=== PATIENT | female | born 1995 | race Two or more races ===

== ENCOUNTER 2024-10-27 09:20 | Outpatient (AMB) | payer MEDICAID, SELFPAY ==
--- NOTE | 2024-10-27 09:32 | OBCLNT_ITS ---
Vital Signs 10/27/24 09:33 Height 1.65 m Height Method Stated Weight 73.595 kg Weight Measurement Method Standing Scale BMI 27.0 BP 118/75 Blood Pressure Source Automatic Cuff Blood Pressure Location Left Upper Arm Position Sitting Respiration 16 Pulse 69 Pulse Source Monitor Temp 98.2 F Temp Source Oral Pulse Oximetry (%) 98 Oxygen Delivery Method Room Air Allergies/Home Meds Allergies & Medications Allergies No Known Allergies Allergy (Verified 10/27/24 09:33) Medication Reconciliation doxylamine 10 mg-pyridoxine (vit B6) 10 mg tablet,delayed release (Diclegis) 1 tab PO BID 30 days #60 tabs 10/27/24 [Rx] vits no.130-ferrous fum 27 mg iron-folic acid 800 mcg tablet ( Vitamin) 1 tab PO QDAY pregancy #60 tabs 10/27/24 [Rx] Intake Visit Data Collection New Patient or Established: New Patient (never been to [facility]) Reason for Visit:: NEW OBI LMP 07/27/2024 Seen by Clinical Staff ONLY (RN/MA): No Biodiesel Technology Manager Required: No Do You Feel Safe at Home: Yes Authorities Contacted: N/A PCP or OBGYN visit in last 3 months: Yes Hx Now: Yes Are you currently on any form of Control: No Last menstrual period: 07/27/24 Pain Present Currently: No Pain Scale Used: Jones-Doran/Numerical Pain scale:: 0 Smoking Status Smoking Status: Never smoker Questionnaires Covid-19 Vaccine Questionnaire Has patient been vacinated for Covid-19 Have you been vacinated for Covid-19: Yes PHQ-9 PHQ-2 Over the last 2 weeks, how often have you been bothered by any of the following problems? 1. Little interest or pleasure in doing things: not at all 2. Feeling down, depressed, or hopeless: not at all Total score: 0 PHQ-9 3. Trouble falling or staying asleep, or sleeping too much: Not at all 4. Feeling tired or having little energy: Not at all 5. Poor appetite or overeating: Not at all 6. Feeling bad about yourself - or that you are a failure or have let yourself or your family down: Not at all 7. Trouble concentrating on things, such as reading the newspaper or watching television: Not at all 8. Moving or speaking so slowly that other people could have noticed? - Or the opposite - being so fidgety or restless that you have been moving around a lot more than usual: not at all 9. Thoughts that you would be better off or of hurting yourself in some way: Not at all Total score: 0 If you checked off any problems, how difficult have these problems made it for you to do your work, take care of things at home, or get along with other people?: not difficult at all Source: Developed by Drs. Lalo Amado, Philomena Tolentino, Ralph Alvarez and colleagues, with an educational maire from [employer]. Depression screen completed yes Social History Living Situation History Marital Status: Single Lives With: Family Housing: House Tobacco History Smoking Status: Never smoker Second Hand Smoke Exposure: No Alcohol History Alcohol Intake: Never Domestic Abuse History Do You Feel Safe at Home: Yes History of Present Illness HPI Narrative 28-year-old 2 para 1 for OBI. Patient's last. Is July 27, 2024. This gives due date May 02 2025. Patient is happy about the . She denies any signs and symptoms of SAB like vaginal bleeding and cramping. Complains of increased nausea and vomiting would like something for that. She denies any existence of chronic illness. Denies social habits. And denies surgeries. No allergies. OB Initial Visit OB Flowsheet OB Flowsheet Initial Weight: Not Recorded Date -?-?-?-?-?-?-?-?-?-?-?-?- EGA Weight BP Alb Glu CTX Pres Fundal ht FHR Mov Dilation Station Effacement Hx Notes Visit Note 10/27/24 -?-?-?-?-?-?-?-?-?-?-?-?- 13w 1d 73.595 kg 118/75 absent unknown 13 145 absent 29-year-old 2 para 1 for OBI. Patient was tearful because history of an abnormal Pap. She had low-grade with mild dysplasia. And then a colpo was done in August. Colpo showed negative for dysplasia and malignancy. And ECC was benign endocervical glandular cells. No SAB complaints. And patient is 13 weeks 1 day by her last period of July 27, 2024. And this gives due date May 02, 2025 OB panel today with NIPT and carrier screens. Reviewed Pap with patient. Will repeat her Pap . Scheduled ultrasound with maternal- medicine/Dr. Caban. I discussed SAB precautions with patient. Return in 4 weeks OB check. Diclegis for nausea ordered and refilled vitamins Menstrual History Menstrual reliability: definite Flow: normal Menstrual regularity: regular Monthly: Yes Age at menarche: 15 On control pills at conception: No OB History : 2 Para: 1 Hx # Pregnancies: 0 Hx Total # of Abortions (Spontaneous & Elective): 0 # of Living Children: 1 Delivery History 1st : Child's name: NOT PROVIDED date: 02/26/16 sex: male Delivery type: vaginal History of depression before or after : No Infection History & Risk Evaluation History of STDs: none HIV risk evaluation: low risk Hepatitis B risk evaluation: low risk Patient or partner has history of Genital Herpes: No Varicella/chicken pox status: immunized Genetic Screening & History Genetic Screening/Teratology Counseling - Includes patient, baby's father, or anyone in either family with: 1. Patient's age 35 years or older as of estimated date of delivery: No 2. Thalassemia (Syriac, Hungarian, Mediterranean, or Background); MCV less than 80: No 3. Neural Tube Defect (Meningomyelocele, Spina Bifida, or Anencephaly): No 4. Congenital Heart Defect: No 5. Down Syndrome: No 6. Keaton-Sachs (Ashkenazi Mandaeism, Cajun, German [place]): No 7. Ese Disease (Ashkenazi Mandaeism): No 8. Familial Dysautonomia (Ashkenazi Mandaeism): No 9. Sickle Cell Disease or Trait (): No 10. Hemophilia or other blood disorders: No 11. Muscular Dystrophy: No 12. Cystic Fibrosis: No 13. Worthington's Chorea: No 14. Mental Retardation/Autism: No 15. Other inherited genetic or chromosomal disorder: No 16. Maternal Metabolic Disorder (EG,TYPE 1 Diabetes, PKU): No 17. Patient or baby's father had a child with defects not listed above: No 18. Recurrent loss or a stillbirth: No 19. Medications (including supplements, vitamins, herbs or otc drugs)/illicit/recreational drugs/alcohol since last menstrual period: No 20. Any other: No Infection History 1. Live with someone with TB or exposed to TB: No 2. Rash or viral illness since last menstrual period: No 3. Hepatitis B,C: No Other (see comments) Source: [employer] Review of Systems Review of Systems Systems Reviewed: All systems reviewed, normal except as documented Exam General Limitations: no limitations General Appearance: alert, in no apparent distress, comfortable, cooperative, healthy appearing, well developed and well groomed Head Head exam: atraumatic, normocephalic and normal inspection Chest Chest inspection: Present normal inspection and symmetric chest wall rise Resp Respiratory exam: Present normal lung sounds bilaterally Card Cardiovascular exam: Present regular rate, normal rhythm and normal heart sounds Abdominal Abdominal exam: Present soft and normal bowel sounds Psych Psychiatric exam: Present normal affect and normal mood Office Procedures OB Clinic LOC & Office Proc's Nursing/Assessment Patient Status: Initial/New Patient OB Clinic Nursing Assessment: Medication Reconciliation, Update PMH in EMR and Vital Signs OB Clinic Coordination of Care: Education Complex Pt/Fam, Consent,records obtained, informed consent, Lab and Imaging orders, Results/Orders obtained and Staff clarify orders Special Needs: Heart tones and Language special needs New Patient Charge New Patient Point Assignment: [id number] New Patient 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 Discussed SAB precautions. Schedule ultrasound with maternal- medicine Dr. Caban. OB panel, NIPT and carrier screen and A1c return in 4 weeks OB check Additional Plan Follow Up: 4 Weeks (obc)
[2024-10-27 09:33] VITALS: BP 118/75; PULSE 69; RESP 16; TEMP 36.8; O2SAT 98; BMI 27.0
== END 2024-10-27 10:16 | disposition home or self-care (01) ==
LOC: HODSOBC 09:20
PROVIDERS: Supervising Provider Advanced Practice Midwife; Visit Provider Advanced Practice Midwife
DX: O09.91 Supervision of high risk pregnancy, unspecified, first trimester (principal); Z3A.13 13 weeks gestation of pregnancy
CPT/HCPCS: 99203; G0463

== ENCOUNTER 2024-11-26 13:58 | Outpatient (AMB) | payer MEDICAID, SELFPAY ==
[2024-11-26 14:22] VITALS: BP 111/74; PULSE 73; RESP 14; TEMP 36.6; O2SAT 99; BMI 27.3
--- NOTE | 2024-11-26 14:22 | OBCLNT_ITS ---
Vital Signs 11/26/24 14:22 Height 1.65 m Height Method Stated Weight 74.389 kg Weight Measurement Method Standing Scale BMI 27.3 BP 111/74 Blood Pressure Source Automatic Cuff Blood Pressure Location Left Upper Arm Position Sitting Respiration 14 Pulse 73 Pulse Source Monitor Temp 98 F Temp Source Oral Pulse Oximetry (%) 99 Oxygen Delivery Method Room Air Allergies/Home Meds Allergies & Medications Allergies No Known Allergies Allergy (Verified 11/26/24 14:23) Medication Reconciliation doxylamine 10 mg-pyridoxine (vit B6) 10 mg tablet,delayed release (Diclegis) 1 tab PO BID 30 days #60 tabs 10/27/24 [Rx Confirmed 11/26/24] vits no.130-ferrous fum 27 mg iron-folic acid 800 mcg tablet ( Vitamin) 1 tab PO QDAY pregancy #60 tabs 10/27/24 [Rx Confirmed 11/26/24] Intake Visit Data Collection New Patient or Established: Established Patient (seen at [facility] within 3 years) Reason for Visit:: CARE Seen by Clinical Staff ONLY (RN/MA): No Professor Of Historical Theology Required: No Do You Feel Safe at Home: Yes Authorities Contacted: N/A PCP or OBGYN visit in last 3 months: Yes Hx Now: Yes Pain Present Currently: No Pain Scale Used: Jones-Doran/Numerical Pain scale:: 0 Smoking Status Smoking Status: Never smoker Questionnaires Covid-19 Vaccine Questionnaire Has patient been vacinated for Covid-19 Have you been vacinated for Covid-19: Yes PHQ-9 PHQ-2 Over the last 2 weeks, how often have you been bothered by any of the following problems? 1. Little interest or pleasure in doing things: not at all 2. Feeling down, depressed, or hopeless: not at all Total score: 0 PHQ-9 3. Trouble falling or staying asleep, or sleeping too much: Not at all 4. Feeling tired or having little energy: Not at all 5. Poor appetite or overeating: Not at all 6. Feeling bad about yourself - or that you are a failure or have let yourself or your family down: Not at all 7. Trouble concentrating on things, such as reading the newspaper or watching television: Not at all 8. Moving or speaking so slowly that other people could have noticed? - Or the opposite - being so fidgety or restless that you have been moving around a lot more than usual: not at all 9. Thoughts that you would be better off or of hurting yourself in some way: Not at all Total score: 0 Source: Developed by Drs. Lalo Amado, Philomena Tolentino, Ralph Alvarez and colleagues, with an educational marie from [employer]. Depression screen completed yes Social History Living Situation History Lives With: Family Housing: House Tobacco History Smoking Status: Never smoker Second Hand Smoke Exposure: No Alcohol History Alcohol Intake: Never Domestic Abuse History Do You Feel Safe at Home: Yes Care OB Visit Log OB Flowsheet Initial Weight: Not Recorded Date -?-?-?-?-?-?-?-?-?-?-?-?- EGA Weight BP Alb Glu CTX Pres Fundal ht FHR Mov Dilation Station Effacement Hx Notes Visit Note 10/27/24 -?-?-?-?-?-?-?-?-?-?-?-?- 13w 1d 73.595 kg 118/75 absent unknown 13 145 absent 29-year-old 2 para 1 for OBI. Patient was tearful because history of an abnormal Pap. She had low-grade with mild dysplasia. And then a colpo was done in August. Colpo showed negative for dysplasia and malignancy. And ECC was benign endocervical glandular cells. No SAB complaints. And patient is 13 weeks 1 day by her last period of July 27, 2024. And this gives due date May 02, 2025 OB panel today with NIPT and carrier screens. Reviewed Pap with patient. Will repeat her Pap . Scheduled ultrasound with maternal- medicine/Dr. Caban. I discussed SAB precautions with patient. Return in 4 weeks OB check. Diclegis for nausea ordered and refilled vitamins 11/26/24 -?-?-?-?-?-?-?-?-?-?-?-?- 17w 3d 74.389 kg 111/74 absent unknown 17 145 active light fm, denies leaking, bleeding, contractions. No OB discomforts or complaints aFP today. Follow-up on NIPT results and follow-up on MFM appointment patient has not received her appointment yet. SAB precautions return in 4 weeks OB check JEANCARLOS Calculator Estimated Delivery Date Method Current WG Current Estimate 05/03/25 LMP (Certain) 17w 3d Notes Visit Date: 10/27/24 Last Updated by: Padmini Hsieh CNM 28 yo . LMP: 07/27/24. EDC: 05/02/25. PAP: LSIL/mild dysplasia. COLPO: Benign endocervical tissue, Negative for dysplasia, ECC: benign endocervical cell/repap 1 year Office Procedures OBC Clinic LOC & Office Proc's Nursing/Assessment Patient Status: Established Patient OB Clinic Nursing Assessment: Medication Reconciliation, Update PMH in EMR and Vital Signs OB Clinic Coordination of Care: Complex Care and Chronic Disease 1-5, Consent,records obtained, informed consent, Education Simp Pt/Fam, Lab and Imaging orders, Results/Orders obtained and Staff clarify orders Special Needs: Heart tones Established Patient Charge Established Patient Point Assignment: 135 Established Patient Point Charge: EP Level 4 (120-155) Assessment & Plan Diagnosis / Problem List (1) Encounter for supervision of high risk in second trimester, antepartum: Status: Acute Plan aFP today. Follow-up on NIPT results. Follow-up on MFM appointment. MFM is pending. Discussed labor precautions. Continue prenatals and return in 4 weeks OB check Additional Plan Follow Up: 4 Weeks (obc)
== END 2024-11-26 15:04 | disposition home or self-care (01) ==
LOC: HODSOBC 13:58
PROVIDERS: Supervising Provider Advanced Practice Midwife; Visit Provider Advanced Practice Midwife
DX: O09.92 Supervision of high risk pregnancy, unspecified, second trimester (principal); Z3A.17 17 weeks gestation of pregnancy
CPT/HCPCS: 99214; G0463

== ENCOUNTER 2024-12-24 13:57 | Outpatient (AMB) | payer MEDICAID, SELFPAY ==
[2024-12-24 14:08] VITALS: BP 113/72; PULSE 81; RESP 18; TEMP 36.8; O2SAT 98; BMI 27.7
--- NOTE | 2024-12-24 14:08 | OBCLNT_ITS ---
Vital Signs 12/24/24 14:08 Height 1.65 m Height Method Stated Weight 75.523 kg Weight Measurement Method Standing Scale BMI 27.7 BP 113/72 Blood Pressure Source Automatic Cuff Blood Pressure Location Right Upper Arm Position Sitting Respiration 18 Pulse 81 Pulse Source Monitor Temp 98.3 F Temp Source Temporal Artery Scan Pulse Oximetry (%) 98 Oxygen Delivery Method Room Air Allergies/Home Meds Allergies & Medications Allergies No Known Allergies Allergy (Verified 12/24/24 14:09) Medication Reconciliation doxylamine 10 mg-pyridoxine (vit B6) 10 mg tablet,delayed release (Diclegis) 1 tab PO BID 30 days #60 tabs 10/27/24 [Rx Confirmed 12/24/24] vits no.130-ferrous fum 27 mg iron-folic acid 800 mcg tablet ( Vitamin) 1 tab PO QDAY pregancy #60 tabs 10/27/24 [Rx Confirmed 12/24/24] Intake Visit Data Collection New Patient or Established: Established Patient (seen at [facility] within 3 years) Reason for Visit:: OBC Seen by Clinical Staff ONLY (RN/MA): No Itinerant Teacher Assistant Required: No Do You Feel Safe at Home: Yes Authorities Contacted: N/A PCP or OBGYN visit in last 3 months: Yes Date of Last PCP or OBGYN visit: 11/26/24 Hx Now: Yes Are you currently on any form of Control: No Pain Present Currently: No Pain Scale Used: Jones-Doran/Numerical Pain scale:: 0 Smoking Status Smoking Status: Never smoker Immunizations Flu Vaccine in the Last 12 Months: No Flu Vaccine Exclusion Criteria: No Exclusion Criteria Questionnaires Covid-19 Vaccine Questionnaire Has patient been vacinated for Covid-19 Have you been vacinated for Covid-19: No PHQ-9 PHQ-2 Over the last 2 weeks, how often have you been bothered by any of the following problems? 1. Little interest or pleasure in doing things: not at all 2. Feeling down, depressed, or hopeless: not at all Total score: 0 PHQ-9 3. Trouble falling or staying asleep, or sleeping too much: Not at all 4. Feeling tired or having little energy: Not at all 5. Poor appetite or overeating: Not at all 6. Feeling bad about yourself - or that you are a failure or have let yourself or your family down: Not at all 7. Trouble concentrating on things, such as reading the newspaper or watching television: Not at all 8. Moving or speaking so slowly that other people could have noticed? - Or the opposite - being so fidgety or restless that you have been moving around a lot more than usual: not at all 9. Thoughts that you would be better off or of hurting yourself in some wa y: Not at all Total score: 0 If you checked off any problems, how difficult have these problems made it for you to do your work, take care of things at home, or get along with other people?: not difficult at all Source: Developed by Drs. Lalo Amado, Philomena Tolentino, Ralph Alvarez and colleagues, with an educational marie from [employer]. Depression screen completed yes Social History Living Situation History Marital Status: Lives With: Family Housing: House Tobacco History Smoking Status: Never smoker Second Hand Smoke Exposure: No Alcohol History Alcohol Intake: Never Domestic Abuse History Do You Feel Safe at Home: Yes Care OB Visit Log OB Flowsheet Initial Weight: Not Recorded Date -?-?-?-?-?-?-?-?-?-?-?-?- EGA Weight BP Alb Glu CTX Pres Fundal ht FHR Mov Dilation Station Effacement Hx Notes Visit Note 10/27/24 -?-?-?-?-?-?-?-?-?-?-?-?- 13w 1d 73.595 kg 118/75 absent unknown 13 145 absent 29-year-old 2 para 1 for OBI. Patient was tearful because history of an abnormal Pap. She had low-grade with mild dysplasia. And then a colpo was done in August. Colpo showed negative for dysplasia and malignancy. And ECC was benign endocervical glandular cells. No SAB complaints. And patient is 13 weeks 1 day by her last period of July 27, 2024. And this gives due date May 02, 2025 OB panel today with NIPT and carrier screens. Reviewed Pap with patient. Will repeat her Pap . Scheduled ultrasound with maternal- medicine/Dr. Caban. I discussed SAB precautions with patient. Return in 4 weeks OB check. Diclegis f or nausea ordered and refilled vitamins 11/26/24 -?-?-?-?-?-?-?-?-?-?-?-?- 17w 3d 74.389 kg 111/74 absent unknown 17 145 active light fm, denies leaking, bleeding, contractions. No OB discomforts or complaints aFP today. Follow-up on NIPT results and follow-up on MFM appointment patient has not received her appointment yet. SAB precautions return in 4 weeks OB check 12/24/24 -?-?-?-?-?-?-?-?-?-?-?-?- 21w 3d 75.523 kg 113/72 absent unknown 21 145 active Light movement. Denies leaking, bleeding, contractions NIPT and AFP results given to patient. Maternal- medicine ultrasound is pending. Discussed labor precautions. Return in 4 weeks OB check JEANCARLOS Calculator Estimated Delivery Date Method Current WG Current Estimate 05/03/25 LMP (Certain) 21w 3d Notes Visit Date: 12/24/24 Last Updated by: Padmini Hsieh CNM NIPT/AFP/Carrier screen- Visit Date: 10/27/24 Last Updated by: Padmini Hsieh CNM 28 yo . LMP: 07/27/24. EDC: 05/02/25. PAP: LSIL/mild dysplasia. COLPO: Benign endocervical tissue, Negative for dysplasia, ECC: benign endocervical cell/repap 1 year Office Procedures OBC Clinic LOC & Office Proc's Nursing/Assessment Patient Status: Established Patient OB Clinic Nursing Assessment: Medication Reconciliation, Update PMH in EMR and Vital Signs OB Clinic Coordination of Care: Complex Care and Chronic Disease 1-5, Education Complex Pt/Fam, Consent,records obtained, informed consent, Lab and Imaging orders, Results/Orders obtained and Staff clarify orders Special Needs: Heart tones Established Patient Charge Established Patient Point Assignment: 140 Established Patient Point Charge: EP Level 4 (120-155) Assessment & Plan Diagnosis / Problem List (1) Encounter for supervision of high risk in second trimester, antepartum: Status: Acute Plan Discussed NIPT, AFP and carrier screen results. MFM ultrasound is pending. Discussed labor precautions. Return in 4 weeks OB check Additional Plan Follow Up: 4 Weeks (obc)
== END 2024-12-24 14:33 | disposition home or self-care (01) ==
LOC: HODSOBC 13:57
PROVIDERS: Supervising Provider Advanced Practice Midwife; Visit Provider Advanced Practice Midwife
DX: O09.92 Supervision of high risk pregnancy, unspecified, second trimester (principal); Z3A.21 21 weeks gestation of pregnancy
CPT/HCPCS: 99214; G0463

== ENCOUNTER 2025-02-06 14:26 | Outpatient (AMB) | payer MEDICAID, SELFPAY ==
[2025-02-06 14:33] VITALS: BP 115/74; PULSE 79; RESP 18; TEMP 36.3; O2SAT 99; BMI 28.5
--- NOTE | 2025-02-06 14:33 | OBCLNT_ITS ---
Vital Signs 02/06/25 14:33 Height 1.65 m Height Method Stated Weight 77.621 kg Weight Measurement Method Standing Scale BMI 28.5 BP 115/74 Blood Pressure Source Automatic Cuff Blood Pressure Location Right Upper Arm Position Sitting Respiration 18 Pulse 79 Pulse Source Monitor Temp 97.4 F Temp Source Temporal Artery Scan Pulse Oximetry (%) 99 Oxygen Delivery Method Room Air Allergies/Home Meds Allergies & Medications Allergies No Known Allergies Allergy (Verified 02/06/25 14:34) Medication Reconciliation doxylamine 10 mg-pyridoxine (vit B6) 10 mg tablet,delayed release (Diclegis) 1 tab PO BID 30 days #60 tabs 10/27/24 [Rx Confirmed 02/06/25] vits no.130-ferrous fum 27 mg iron-folic acid 800 mcg tablet ( Vitamin) 1 tab PO QDAY pregancy #60 tabs 10/27/24 [Rx Confirmed 02/06/25] Immunizations Immunizations Flu Vaccine in the Last 12 Months: No Flu Vaccine Exclusion Criteria: No Exclusion Criteria Care OB Visit Log OB Flowsheet Initial Weight: Not Recorded Date -?-?-?-?-?-?-?-?-?-?-?-?- EGA Weight BP Alb Glu CTX Pres Fundal ht FHR Mov Dilation Station Effacement Hx Notes Visit Note 10/27/24 -?-?-?-?-?-?-?-?-?-?-?-?- 13w 1d 73.595 kg 118/75 absent unknown 13 145 absent 29-year-old 2 para 1 for OBI. Patient was tearful because history of an abnormal Pap. She had low-grade with mild dysplasia. And then a colpo was done in August. Colpo showed negative for dysplasia and malignancy. And ECC was benign endocervical glandular cells. No SAB complaints. And patient is 13 weeks 1 day by her last period of July 27, 2024. And this gives due date May 02, 2025 OB panel today with NIPT and carrier screens. Reviewed Pap with patient. Will repeat her Pap . Scheduled ultrasound with maternal- medicine/Dr. Caban. I discussed SAB precautions with patient. Return in 4 weeks OB check. Diclegis for nausea ordered and refilled vitamins 11/26/24 -?-?-?-?-?-?-?-?-?-?-?-?- 17w 3d 74.389 kg 111/74 absent unknown 17 145 active light fm, denies le aking, bleeding, contractions. No OB discomforts or complaints aFP today. Follow-up on NIPT results and follow-up on MFM appointment patient has not received her appointment yet. SAB precautions return in 4 weeks OB check 12/24/24 -?-?-?-?-?-?-?-?-?-?-?-?- 21w 3d 75.523 kg 113/72 absent unknown 21 145 active Light movement. Denies leaking, bleeding, contractions NIPT and AFP results given to patient. Maternal- medicine ultrasound is pending. Discussed labor precautions. Return in 4 weeks OB check 02/06/25 -?-?-?-?-?-?-?-?-?-?-?-?- 27w 5d 77.621 kg 115/74 absent unknown 28 145 active Patient complains of increased ligament plain and backache. She also complains of cramping. 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 She would like to start her disability. Reports good movement. She denies leaking or bleeding. History of mild polyhydramnios Disability starting 02/09/25. Discussed comfort measures for ligament pain and backache. Increase fluids. Discussed labor precautions. Discussed third trimester labs ordered. Patient will have a follow-up MFM in 2 months. Return in 2 weeks OB check JEANCARLOS Calculator Estimated Delivery Date Method Current WG Current Estimate 05/03/25 LMP (Certain) 27w 5d Other Estimates 05/03/25 Ultrasound #1 27w 5d Notes Visit Date: 02/06/25 Last Updated by: Padmini Hsieh CNM O+, ABS negative, RPR nonreactive, rubella nonimmune, hepatitis B negative, HIV negative, hep C negative, GC and Chlamydia were negative. Visit Date: 12/24/24 Last Updated by: Padmini Hsieh CNM NIPT/AFP/Carrier screen- Visit Date: 10/27/24 Last Updated by: Padmini Hsieh CNM 28 yo . LMP: 07/27/24. EDC: 05/02/25. PAP: LSIL/mild dysplasia. COLPO: Benign endocervical tissue, Negative for dysplasia, ECC: benign endocervical cell/repap 1 year Office Procedures OBC Clinic LOC & Office Proc's Nursing/Assessment Patient Status: Established Patient OB Clinic Nursing Assessment: Medication Reconciliation, Update PMH in EMR and Vital Signs OB Clinic Coordination of Care: Complex Care and Chronic Disease 1-5, Education Complex Pt/Fam, Consent,records obtained, informed consent, Lab and Imaging o rders, Results/Orders obtained and Staff clarify orders Special Needs: Heart tones Established Patient Charge Established Patient Point Assignment: 140 Established Patient Point Charge: EP Level 4 (120-155) Assessment & Plan Diagnosis / Problem List (1) Encounter for supervision of high risk in second trimester, antepartum: Status: Acute Plan Start disability February 09, 2025. Patient will return to work 6 weeks . Discussed comfort measures for her disabilities. Tylenol as indicated. Order third trimester labs. Follow-up with MFM in 2 months. Return in 3 weeks OB check Additional Plan Follow Up: 3 Weeks (obc)
== END 2025-02-06 15:31 | disposition home or self-care (01) ==
LOC: HODSOBC 14:26
PROVIDERS: Visit Provider Advanced Practice Midwife
DX: O09.892 Supervision of other high risk pregnancies, second trimester (principal); O99.891 Other specified diseases and conditions complicating pregnancy; M54.9 Dorsalgia, unspecified; Z3A.27 27 weeks gestation of pregnancy
CPT/HCPCS: 99214; G0463